=== PATIENT | male | born 1965 ===

== ENCOUNTER 2018-01-07 20:38 | Emergency (ER) | payer OTHER ==
[~2018-01-07] VITALS: Ht 157.5 cm; Wt 59.9 kg
[~2018-01-07 20:38] MED LIST: JANUMET 50-1,01 EACH; LIPITOR40 MG; RAMIPRIL1.25 MG
== END 2018-01-07 22:08 | disposition home or self-care (01) ==
LOC: ER 20:38
DX: L13.0 Dermatitis herpetiformis (principal); R21 Rash and other nonspecific skin eruption

== ENCOUNTER 2018-02-09 15:20 | Emergency (ER) | payer OTHER ==
[~2018-02-09] VITALS: Ht 160 cm; Wt 59.0 kg
[2018-02-10] MEDS ORDERED: MIRALAX510 GM PO (02:30)
[2018-02-10] MEDS ORDERED: CONEX TABLET1 EACH PO (02:30)
== END 2018-02-10 02:40 | disposition home or self-care (01) ==
LOC: ER 15:20
DX: K31.84 Gastroparesis (principal); K59.09 Other constipation

== ENCOUNTER 2018-02-14 11:34 | Emergency (ER) | payer OTHER ==
[~2018-02-14] VITALS: Ht 160 cm; Wt 59.0 kg
[~2018-02-14 11:34] MED LIST changes: +CONEX TABLET1 EACH PO; +MIRALAX510 GM PO
== END 2018-02-14 21:33 | disposition home or self-care (01) ==
LOC: ER 11:34
DX: K31.84 Gastroparesis (principal)